=== PATIENT | male | born 1960 | race Caucasian/White ===

== ENCOUNTER → 2019-06-25 13:44 | Outpatient (CLI) | payer OTHER, SELFPAY ==
--- NOTE | 2019-06-25 | DI.RAD.S_ITS ---
PROCEDURE: XR KNEE RT 3V INDICATIONS: right knee pain TECHNIQUE: 3 views of the knee were acquired. COMPARISON: None. FINDINGS: Bones: No fractures or dislocations. No suspicious bony lesions. Soft tissues: No joint effusion. No suspicious soft tissue calcifications. 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 No trauma found. Dictated by: Jeff Martines M.D. on 06/25/2019 at 15:14 Approved by: Jeff Martines M.D. on 06/25/2019 at 15:15
== END ==
PROVIDERS: Family Provider Family Medicine; PCP Family Medicine; Referring Provider Student in an Organized Health Care Education/Training Program; Visit Provider Student in an Organized Health Care Education/Training Program
DX: M25.561 Pain in right knee (principal)
CPT/HCPCS: 73562

== ENCOUNTER → 2019-07-08 06:26 | Outpatient (CLI) | payer OTHER, SELFPAY ==
--- NOTE | 2019-07-08 | DI.MRI.S_ITS ---
PROCEDURE: MR KNEE RT WO CON INDICATIONS: Right knee pain TECHNIQUE: Noncontrast sagittal PD fast spin echo and T2 fast spin echo with fat saturation, sagittal 3-D FLASH with fat saturation; coronal T1 spin echo and PD fast spin echo with fat saturation, and axial PD fast spin echo with fat saturation through the knee. COMPARISON: None. FINDINGS: Image quality: Excellent. Menisci: There is an complex oblique tear involving posterior horn of medial meniscus extending to superior and inferior articulating surface. There is no focal lateral meniscal tear. The meniscal root ligaments appear intact. Cruciate ligaments: The anterior and posterior cruciate ligaments appear intact. Medial structures: There is low-grade proximal MCL sprain. The posterior oblique ligament, semimembranosus tendon insertions, oblique popliteal ligament, and meniscocapsular junction appear intact. Visualized portions of the pes anserinus tendons appear normal. No abnormal bursal fluid. Lateral structures: The lateral collateral ligament, long and short heads of the biceps femoris tendon appear intact. The popliteus tendon appears normal; the popliteofibular ligament appears intact. The posterosuperior and anteroinferior popliteomeniscal fascicles appear intact. The arcuate and fabellofibular ligaments appear intact, on either side of the lateral inferior geniculate artery. Iliotibial band appears normal. Anterior structures: The quadriceps and patellar tendons appear intact. Patellar alignment is normal. No femoral trochlear dysplasia or ventral trochlear prominence. No edema in the infrapatellar fat pad. Bones and cartilage: No bone marrow contusions or fractures. Low-grade chondromalacia involving weight-bearing portion of medial femoral condyle is seen. Articulating cartilages and lateral femoral tibial compartment and patellofemoral compartment are intact. Joint space: There is small amount of joint fluid fluid. No Tyler's cyst. Normal appearing synovial plicae are incidentally noted. IMPRESSION: 1. Complex oblique tear involving posterior horn of medial meniscus extending to both superior and inferior articulating surfaces. No evidence of focal lateral meniscal tear. 2. Chondromalacia involving medial femoral tibial compartment. Small joint effusion. No gross loose body. 3. Cruciate ligaments are intact. Low-grade proximal MCL sprain. Dictated by: Qasim Ku M.D. on 07/08/2019 at 8:41 Approved by: Qasim Ku M.D. on 07/08/2019 at 8:58
== END ==
PROVIDERS: Family Provider Family Medicine; PCP Student in an Organized Health Care Education/Training Program; Referring Provider Student in an Organized Health Care Education/Training Program; Visit Provider Student in an Organized Health Care Education/Training Program
DX: M25.561 Pain in right knee (principal); S83.231A Complex tear of medial meniscus, current injury, right knee, initial encounter; S83.411A Sprain of medial collateral ligament of right knee, initial encounter; M94.261 Chondromalacia, right knee; M25.461 Effusion, right knee
CPT/HCPCS: 73721

== ENCOUNTER 2021-11-05 12:26 | Emergency (ER) | payer OTHER, SELFPAY ==
[2021-11-05 12:55] VITALS: PULSE 61; O2SAT 96
[2021-11-05 12:56] VITALS: BP 146/71; PULSE 63; O2SAT 96
[2021-11-05 13:00] VITALS: BP 146/71; PULSE 59; PULSE 60; RESP 18; TEMP 37; O2SAT 96; BMI 37.8
[2021-11-05 13:01] VITALS: BP 129/75; PULSE 60; O2SAT 96
[2021-11-05 13:30] VITALS: BP 133/77; PULSE 60; O2SAT 97
[2021-11-05 13:45] LABS: Add Manual Diff / Slide Review NO; Basophils Absolute Auto 100 /uL (0-100); Basophils Percent Auto 0.7 % (0-2); Eosinophils Absolute Auto 300 /uL (0-450); Hematocrit 39.6 % (41-53); Hemoglobin 13.7 g/dL (13.5-17.5); Lymphocytes Absolute Auto 2200 /uL (1100-4500); Lymphocytes Percent Auto 18.5 % (25-40); Mean Corpuscular HGB Conc 34.6 % (30-36); Mean Corpuscular Hemoglobin 32.2 PG (26-34); Mean Corpuscular Volume 93.3 fL (80-100); Monocytes Absolute Auto 1400 /uL (0-900); Monocytes Percent Auto 11.9 % (3-14); Neutrophils Absolute Auto 7700 /uL (1500-7000); Neutrophils Percent Auto 65.9 % (50-75); Platelet Count 162 X10^3/uL (150-400); Red Blood Cell Count 4.25 X10^6/uL (4.5-5.9); Red Cell Distribution Width 12.6 % (11.6-14.8); White Blood Cell Count 11.6 X10^3/uL (4.5-11.0)
[2021-11-05 13:52] LABS: Alanine Aminotransferase 45 IU/L (<50); Albumin Globulin Ratio 1.5 (1.0-2.8); Alkaline Phosphatase 67 U/L (38-126); Aspartate Aminotransferase 41 IU/L (17-59); BUN Creatinine Ratio 17.9 (6-22); Blood Urea Nitrogen 17 mg/dL (9-20); Calcium 8.7 mg/dL (8.4-10.2); Carbon Dioxide 29 mmol/L (22-32); Chloride 99 mmol/L (98-107); Estimated Glomerular Filt Rate > 60 mL/min (>60); Globulin 2.7 g/dL (1.7-4.1); Glucose 103 mg/dL (70-100); HEMOLYSIS < 15 (0-50); Lipase 74 U/L (23-300); Potassium 3.7 mmol/L (3.4-5.1); Sodium 137 mmol/L (137-145); Total Protein 6.7 g/dL (6.3-8.2)
[2021-11-05 14:00] VITALS: BP 139/84; PULSE 62; O2SAT 96
--- NOTE | 2021-11-05 14:05 | ED_ITS ---
HPI - Abdominal Pain <ANSHUL Jones - Last Filed: 11/05/21 14:11> General Chief Complaint: Abdominal Pain Stated Complaint: Lower left abd pain Time Seen by Provider: 11/05/21 13:52 Source: patient Mode of arrival: Family Vehicle History of Present Illness HPI narrative: This is a 61-year-old male with history of diverticulitis in the past, presents to the emergency department complaining of left lower quadrant pain which started last night and he feels fairly confident that this is a flare of his diverticulitis. He denies any fever, vomiting, constipation, other abdominal pain, or any other symptoms. He denies any dysuria, urinary retention, back pain, shortness of breath or chest pain. Patient states that he has not had any blood in his urine or his stool, states that his last colonoscopy was 5 years ago and he was told he did not need another one for 10 years. Patient denies any other changes, denies any allergies to penicillin or other antibiotics. Denies being on any anticoagulants, states only on blood pressure medicines. Related Data Home Medications Medication Instructions Recorded Confirmed [EYE DROPS] ##0 01/13/16 05/07/21 aspirin 81 mg tablet,delayed 81 mg PO QDAY ##0 01/13/16 05/07/21 release atorvastatin 10 mg tablet (Lipitor) 10 mg PO HS #30 tabs 01/13/16 05/07/21 telmisartan 40 1 tab PO QDAY #0 tabs 01/13/16 05/07/21 mg-hydrochlorothiazide 12.5 mg tablet (Micardis HCT) venlafaxine 75 mg capsule,extended 75 mg PO QDAY ##0 01/13/16 release 24 hr (Effexor XR) carvedilol PO 05/07/21 05/07/21 hydrochlorothiazide PO 05/07/21 05/07/21 Previous Rx's Medication Instructions Recorded amoxicillin 875 mg-potassium 1 tab PO BID 7 days #14 tabs 11/05/21 clavulanate 125 mg tablet Allergies Allergy/AdvReac Type Severity Reaction Status Date / Time No Known Drug Allergies Allergy Verified 05/07/21 16:35 Review of Systems <ANSHUL Jones - Last Filed: 11/05/21 14:11> Review of Systems Narrative: General: denies fever, chills Head/Neck: denies headache, neck pain Eyes: denies visual changes, eye pain Cardio: denies chest pain, palpitations Respiratory: denies shortness of breath, cough GI: Endorses left lower quadrant abdominal pain, denies any nausea, vomiting, constipation or diarrhea : denies dysuria, hematuria or flank pain MSK: denies new joint pain, muscle weakness or swelling Skin: denies rash, itching or wound Neuro: denies numbness, tingling, dizziness Patient History <ANSHUL Jones - Last Filed: 11/05/21 14:11> Social History Smoking Status: Former smoker Smoking Status: Former smoker tobacco type: cigarettes alcohol intake frequency: 0-2 drinks per day Substance Use Type: does not use Exam <ANSHUL Jones - Last Filed: 11/05/21 14:11> Narrative Exam Narrative: Independently reviewed vitals signs and nursing notes. General: Awake, alert, nontoxic, no cardiorespiratory distress Head/Neck: Atraumatic, neck supple Eyes: EOMI, conjunctiva normal Nose: nares patent, no rhinorrhea Mouth/Throat: moist mucus membranes, posterior pharynx without erythema or lesion Cardio: Regular rate and rhythm, no peripheral edema, warm extremities Respiratory: respirations unlabored without wheezing, stridor, or rales. No retractions, hypoxia or tachypnea GI: Abdomen soft, obese, tender to palpation over left lower quadrant, no guarding or rebound tenderness, no CVA tenderness MSK: Moves all extremities, neurovascularly intact, range of motion without deficit Skin: Normal capillary refill, no rash Neuro: Normal speech and cognition, normal gait Initial Vital Signs Initial Vital Signs: Vital Signs Pulse Rate 61 11/05/21 12:55 Pulse Oximetry 96 11/05/21 12:55 <Marybel Long DO - Last Filed: 11/06/21 07:33> Initial Vital Signs Initial Vital Signs: Vital Signs Pulse Rate 61 11/05/21 12:55 Pulse Oximetry 96 11/05/21 12:55 Course <ANSHUL Jones - Last Filed: 11/05/21 14:11> Orders Ordered: ED Orders 11/05/21 13:23 Complete Blood Count AUTO DIFF Stat Comprehensive Metabolic Panel Stat Lipase Stat Vital Signs Vital signs: Vital Signs - 8 hr 11/05/21 13:00 11/05/21 12:55 11/05/21 12:56 Temperature 98.6 F Pulse Rate 59 L 61 Respiratory Rate 18 Blood Pressure 146/71 H 146/71 H Pulse Oximetry 96 96 Oxygen Delivery Method Room Air 11/05/21 12:56 11/05/21 13:00 11/05/21 13:01 Temperature Pulse Rate 63 60 60 Respiratory Rate Blood Pressure Pulse Oximetry 96 96 96 Oxygen Delivery Method 11/05/21 13:01 Temperature Pulse Rate Respiratory Rate Blood Pressure 129/75 Pulse Oximetry Oxygen Delivery Method <Marybel Long DO - Last Filed: 11/06/21 07:33> Orders Ordered: ED Orders 11/05/21 13:23 Complete Blood Count AUTO DIFF Stat Comprehensive Metabolic Panel Stat Lipase Stat Vital Signs Vital signs: Vital Signs - 8 hr 11/05/21 13:00 11/05/21 12:55 11/05/21 12:56 Temperature 98.6 F Pulse Rate 59 L 61 Respiratory Rate 18 Blood Pressure 146/71 H 146/71 H Pulse Oximetry 96 96 Oxygen Delivery Method Room Air 11/05/21 12:56 11/05/21 13:00 11/05/21 13:01 Temperature Pulse Rate 63 60 60 Respiratory Rate Blood Pressure Pulse Oximetry 96 96 96 Oxygen Delivery Method 11/05/21 13:01 Temperature Pulse Rate Respiratory Rate Blood Pressure 129/75 Pulse Oximetry Oxygen Delivery Method MDM - Abdominal Pain <ANSHUL Jones - Last Filed: 11/05/21 14:11> Lab Data Result diagrams: 11/05/21 13:23 11/05/21 13:23 Labs: Lab Results 11/05/21 11/05/21 Range/Units 13:23 13:23 WBC 11.6 H (4.5-11.0) X10^3/uL RBC 4.25 L (4.5-5.9) X10^6/uL Hgb 13.7 (13.5-17.5) g/dL Hct 39.6 L (41-53) % MCV 93.3 (80-100) fL MCH 32.2 (26-34) PG MCHC 34.6 (30-36) % RDW 12.6 (11.6-14.8) % Plt Count 162 (150-400) X10^3/uL Neut % (Auto) 65.9 (50-75) % Lymph % (Auto) 18.5 L (25-40) % Lynn % (Auto) 11.9 (3-14) % Eos % (Auto) 3.0 (2-4) % Baso % (Auto) 0.7 (0-2) % Neut # (Auto) 7700 H (8291-8289) /uL Lymph # (Auto) 2200 (5447-3907) /uL Lynn # (Auto) 1400 H (0-900) /uL Eos # (Auto) 300 (0-450) /uL Baso # (Auto) 100 (0-100) /uL Sodium 137 (137-145) mmol/L Potassium 3.7 (3.4-5.1) mmol/L Chloride 99 (98-107) mmol/L Carbon Dioxide 29 (22-32) mmol/L BUN 17 (9-20) mg/dL Creatinine 0.95 (0.66-1.25) mg/dL Estimated GFR > 60 (>60) mL/min BUN/Creatinine Ratio 17.9 (6-22) Glucose 103 H (70-100) mg/dL Calcium 8.7 (8.4-10.2) mg/dL Total Bilirubin 1.0 (0.2-1.3) mg/dL AST 41 (17-59) IU/L ALT 45 (<50) IU/L Alkaline Phosphatase 67 (38-126) U/L Total Protein 6.7 (6.3-8.2) g/dL Albumin 4.0 (3.5-5.0) g/dL Globulin 2.7 (1.7-4.1) g/dL Albumin/Globulin Ratio 1.5 (1.0-2.8) Lipase 74 (23-300) U/L [facility] Narrative Medical decision making narrative: This is a pleasant 61-year-old male who presents to the emergency department complaining of left lower quadrant pain which started yesterday and a history of diverticulitis in the past with similar feelings about his pain today. He states that he took some Tylenol but otherwise has not needed any pain med ication. He denies any blood in his urine or stool, states that his last colonoscopy was five years ago when he got a 10 year laughing until his next one is needed. His primary care provider with Sheryl Duenas, she has since retired, he has an upcoming appointment with Dr. Saeed and understands to follow-up with him about this. This is most likely diverticulitis, on exam, he was tender over his left lower quadrant, his lab work showed a mild leukocytosis of 11.6, chemistry without any significant abnormalities. Due to patient's history, his denial of blood in his urine or stool, or any other symptoms, shared decision making with patient who agrees to antibiotic therapy without CT imaging. He states that since he has a history of this and feels quite similar, he will return if he has any worsening. No peritoneal signs on abdominal exam. Patient remains p.o. tolerant. Serial abdominal exam without increase in abdominal pain. Given history and exam, low suspicion for acute abdominal process, such as acute cholecystitis, pancreatitis, perforated viscus, atypical appendicitis, colitis, diverticulitis or torsion. Extensive conversation about ER return precautions and need for close follow-up.Patient is appropriate and amenable to discharge home. Vital signs are stable on repeat examination is unremarkable. Patient has been informed of results. Patient has been given st rict return to ER precautions for any new or worsening symptoms. Patient understands to follow up closely with outpatient providers as instructed. Patient understands plan and agrees to discharge home. All questions and concerns answered at this time. <Marybel Long, - Last Filed: 11/06/21 07:33> Lab Data Labs: Lab Results 11/05/21 11/05/21 Range/Units 13:23 13:23 WBC 11.6 H (4.5-11.0) X10^3/uL RBC 4.25 L (4.5-5.9) X10^6/uL Hgb 13.7 (13.5-17.5) g/dL Hct 39.6 L (41-53) % MCV 93.3 (80-100) fL MCH 32.2 (26-34) PG MCHC 34.6 (30-36) % RDW 12.6 (11.6-14.8) % Plt Count 162 (150-400) X10^3/uL Neut % (Auto) 65.9 (50-75) % Lymph % (Auto) 18.5 L (25-40) % Lynn % (Auto) 11.9 (3-14) % Eos % (Auto) 3.0 (2-4) % Baso % (Auto) 0.7 (0-2) % Neut # (Auto) 7700 H (9585-8614) /uL Lymph # (Auto) 2200 (6620-0813) /uL Lynn # (Auto) 1400 H (0-900) /uL Eos # (Auto) 300 (0-450) /uL Baso # (Auto) 100 (0-100) /uL Sodium 137 (137-145) mmol/L Potassium 3.7 (3.4-5.1) mmol/L Chloride 99 (98-107) mmol/L Carbon Dioxide 29 (22-32) mmol/L BUN 17 (9-20) mg/dL Creatinine 0.95 (0.66-1.25) mg/dL Estimated GFR > 60 (>60) mL/min BUN/Creatinine Ratio 17.9 (6-22) Glucose 103 H (70-100) mg/dL Calcium 8.7 (8.4-10.2) mg/dL Total Bilirubin 1.0 (0.2-1.3) mg/dL AST 41 (17-59) IU/L ALT 45 (<50) IU/L Alkaline Phosphatase 67 (38-126) U/L Total Protein 6.7 (6.3-8.2) g/dL Albumin 4.0 (3.5-5.0) g/dL Globulin 2.7 (1.7-4.1) g/dL Albumin/Globulin Ratio 1.5 (1.0-2.8) Lipase 74 (23-300) U/L Discharge Plan Departure Patient Disposition: Home Clinical Impression: Diverticulitis Instructions: Diverticulitis Activity Restrictions/Additional Instructions: *You have been diagnosed with diverticulitis. Please take these antibiotics twice a day for the next seven days. Please schedule follow-up with Dr. Saeed as needed. Please return if your pain gets worse or if you have any worsening changes. Try and stay hydrated, stick to a hydration diet over the next two day s and this will help calm down your pain as well. Happy 05 of November, I hope that you feel better soon. *What to do: *Please continue to take your regular medications as directed. [ x New medication prescriptions sent to your pharmacy: [ [facility]] [ ] New medication written as a paper prescription [ ] No new medications given *Please follow up with your primary care provider in 2-3 days, call for an appointment. Let them know you were seen in the Emergency Department and that we asked that you be seen for follow-up. We will electronically transmit a record of today's note if your PCP is in our system *If you do not have a primary care provider please contact [phone] to establish care with one of the [facility] primary care providers. *Return to Emergency Department if you should have any new, worsening or concerning symptoms, such as [fever greater than 101F, chills, worsening pain, persistent vomiting or other bothersome symptoms] Prescriptions: New amoxicillin-pot clavulanate 875-125 mg tablet 1 tab PO BID 7 Days Qty: 14 0RF No Action venlafaxine [Effexor XR] 75 MG capsule,extended release 24hr 75 mg PO QDAY Qty: 0 aspirin 81 MG tablet,delayed release (DR/EC) 81 mg PO QDAY Qty: 0 [EYE DROPS] Qty: 0 telmisartan-hydrochlorothiazid [Micardis HCT] 40 MG/12.5 MG tablet 1 tab PO QDAY Qty: 0 atorvastatin [Lipitor] 10 MG tablet 10 mg PO HS Qty: 30 hydrochlorothiazide PO carvedilol PO Referrals: Sheryl Duenas MD [Primary Care Provider] - Niranjan Saeed MD [Physician] - Visit Report Forms: Patient Portal/API <Marybel Long DO - Last Filed: 11/06/21 07:33> [facility] ED Attending Katyature Attestation: I was immediately available in the department for consultation. Documentation has been reviewed. I agree with assessment and plan.
== END 2021-11-05 14:25 | disposition home or self-care (01) ==
PROVIDERS: Emergency Provider Emergency Medicine; PCP Student in an Organized Health Care Education/Training Program
DX: K57.92 Diverticulitis of intestine, part unspecified, without perforation or abscess without bleeding (principal)
CPT/HCPCS: 36415; 80053; 83690; 85025; 99283

== ENCOUNTER 2022-02-10 08:38 | Emergency (ER) | payer OTHER, SELFPAY ==
[2022-02-10 09:10] VITALS: BP 141/84; PULSE 57; RESP 20; TEMP 36.2; O2SAT 95; BMI 33.3
--- NOTE | 2022-02-10 09:33 | DI.RAD.S_ITS ---
PROCEDURE: XR CHEST 2V INDICATIONS: Hemoptysis, covid pos 10 days ago TECHNIQUE: 2 views of the chest were acquired. COMPARISON: None. FINDINGS: Surgical changes and devices: None. Lungs and pleura: An incomplete inspiratory result is noted, causing a crowded appearance to the lung markings. No focal infiltrates are seen. No pneumothorax or significant pleural effusions are seen. Mediastinum: Mediastinal contours are normal. Heart size is normal. Bones and chest wall: No suspicious bony abnormalities. Soft tissues appear unremarkable. IMPRESSION: Low lung volumes, without focal infiltrates or other acute abnormality. Dictated by: Thomas Laureano M.D. on 02/10/2022 at 8:59 Approved by: Thomas Laureano M.D. on 02/10/2022 at 9:00
--- NOTE | 2022-02-10 09:33 | ED.GENADULT ---
HPI - General Adult General Chief complaint: Upper Respiratory Symptoms Stated complaint: per pt Coughing up blood Time Seen by Provider: 02/10/22 09:27 Source: patient Mode of arrival: Ambulatory History of Present Illness HPI narrative: 61-year-old male. Approximately 10 days ago had a ?mild cold like symptoms with a slight fever and some shortness of breath. He was tested positive for COVID. Symptoms lasted approximately 5-6 days. He states he has been feeling well since then. Today woke up and felt like he was wheezing. Was coughing states that he coughed up some blood. He feels better currently. No current shortness of breath. No chest pain. Not on anticoagulation. Related Data Home Medications Medication Instructions Recorded Confirmed [EYE DROPS] ##0 01/13/16 12/06/21 aspirin 81 mg tablet,delayed 81 mg PO QDAY ##0 01/13/16 12/06/21 release venlafaxine 75 mg capsule,extended 75 mg PO QDAY ##0 01/13/16 12/06/21 release 24 hr (Effexor XR) atorvastatin 20 mg tablet 20 mg PO DAILY 12/06/21 12/06/21 carvedilol 50 mg PO DAILY 12/06/21 12/06/21 hydrochlorothiazide 25 mg PO DAILY 12/06/21 12/06/21 loratadine 10 mg tablet (Claritin) 10 mg PO DAILY 12/06/21 12/06/21 telmisartan 80 mg tablet 80 mg PO DAILY 12/06/21 12/06/21 Previous Rx's Medication Instructions Recorded ipratropium bromide 21 mcg (0.03 2 spray intranasal BID #30 mL 12/06/21 %) nasal spray Allergies Allergy/AdvReac Type Severity Reaction Status Date / Time No Known Drug Allergies Allergy Verified 12/06/21 08:50 Review of Systems Constitutional Constitutional: Reports system reviewed and no additional complaints, except as documented ENT Ears, Nose, Mouth, and Throat: Reports system reviewed and no additional complaints, except as documented Cardiovascular Cardiovascular: Reports system reviewed and no additional complaints, except as documented Respiratory Respiratory: Reports system reviewed and no additional complaints, except as documented Hematologic/Lymphatic On Anticoagulants: No Patient History Medical History 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 Obstructive sleep apnea (adult) (pediatric) Social History Smoking Status: Former smoker Smoking Status: Former smoker tobacco type: cigarettes alcohol intake frequency: holidays/special occasions only Substance Use Type: does not use Exam Initial Vital Signs Initial Vital Signs: Vital Signs Temperature 97.2 F L 02/10/22 09:10 Pulse Rate 57 L 02/10/22 09:10 Respiratory Rate 20 02/10/22 09:10 Blood Pressure 141/84 H 02/10/22 09:10 Pulse Oximetry 95 02/10/22 09:10 Oxygen Delivery Method 02/10/22 09:10 Const General: cooperative, healthy appearing and comfortable HENMT Head: normal to inspection and normocephalic Resp Effort & Inspection: normal respiratory effort Auscultation: clear to auscultation bilaterally Cardio Rate: regular rate Rhythm: regular rhythm Neuro General: patient alert, patient awake, patient oriented x3 and moves all extremities Cognition: normal cognition Speech: speech normal Gait: normal gait Extrem General: normal to inspection Course Orders Ordered: ED Orders 02/10/22 09:33 XR chest 2V Stat Vital Signs Vital signs: Vital Signs - 8 hr 02/10/22 09:10 Temperature 97.2 F L Pulse Rate 57 L Respiratory Rate 20 Blood Pressure 141/84 H Pulse Oximetry 95 Oxygen Delivery Method Room Air Medical Decision Making Imaging Data Chest x-ray: Radiologist's Impression: [place] [address] XRay Report Signed Patient: Angel Aaron MR#: [id number] : 1960 Acct:[id number] Age/Sex: 61 / M Date of Service: 02/10/22 Loc: ED Accession Number: [id number] ?? Procedure: XR chest 2V Ordering Provider: Carson Junior D.O. PROCEDURE:? XR CHEST 2V ? INDICATIONS:? Hemoptysis, covid pos 10 days ago ? TECHNIQUE:? 2 views of the chest were acquired.? ? COMPARISON:? None. ? FINDINGS:? ? Surgical changes and devices:? None.? ? Lungs and pleura:? An incomplete inspiratory result is noted, causing a crowded appearance to the lung markings.? No focal infiltrates are seen.? No pneumothorax or significant pleural effusions are seen. ? ? Mediastinum:? Mediastinal contours are normal.? Heart size is normal.? ? Bones and chest wall:? No suspicious bony abnormalities.? Soft tissues appear unremarkable.? IMPRESSION:? Low lung volumes, without focal infiltrates or other acute abnormality. ? ? Dictated by: Thomas Laureano M.D. on 02/10/2022 at 8:59 ? ? Approved by: Thomas Laureano M.D. on 02/10/2022 at 9:00?? MDM Narrative Medical decision making narrative: No respiratory distress. Not hypoxic. Clear lung exam. Not on anticoagulation. Has not cough since being here in the ER. Chest x-ray is unremarkable. No indication for antibiotics. Low suspicion for pulmonary embolism given his presentation. Reassured the patient. Is most likely irritation from his COVID. Discharge home with strict return precautions. He expressed understanding and agreement. Discharge Plan Departure Patient Disposition: Home Clinical Impression: Cough with hemoptysis Instructions: Cough Activity Restrictions/Additional Instructions: Your chest x-ray today shows no signs of an infection that would require any antibiotics. You can try [id number] cough and cold preparations try to help with your cough if needed. Contact your primary doctor for follow-up. Return to the emergency department for any new or worsening symptoms. Prescriptions: No Action venlafaxine [Effexor XR] 75 MG capsule,extended release 24hr 75 mg PO QDAY Qty: 0 aspirin 81 MG tablet,delayed release (DR/EC) 81 mg PO QDAY Qty: 0 [EYE DROPS] Qty: 0 carvedilol 50 mg PO DAILY hydrochlorothiazide 25 mg PO DAILY atorvastatin 20 mg tablet 20 mg PO DAILY telmisartan 80 mg tablet 80 mg PO DAILY loratadine [Claritin] 10 mg tablet 10 mg PO DAILY ipratropium bromide 21 mcg (0.03 %) spray,non-aerosol 2 spray intranasal BID Qty: 30 3RF Rx Instructions: administer into each nostril Referrals: Niranjan Saeed MD [Primary Care Provider] -
--- NOTE | 2022-02-10 10:19 | PC.NURSE ---
exam deferred to Dr. Junior.
== END 2022-02-10 10:58 | disposition home or self-care (01) ==
PROVIDERS: Emergency Provider Emergency Medicine; PCP Family Medicine
DX: R04.2 Hemoptysis (principal); Z86.16 Personal history of COVID-19
CPT/HCPCS: 71046; 99283

== ENCOUNTER → 2023-07-04 09:30 | Outpatient (CLI) | payer OTHER, SELFPAY ==
--- NOTE | 2023-07-04 09:34 | DI.RAD.S_ITS ---
PROCEDURE: XR FINGER RT MIN 2V INDICATIONS: FINGER PAIN TECHNIQUE: AP hand, 2 views of the 2 finger(s) acquired. COMPARISON: None. FINDINGS: Bones: No fractures or dislocations. No suspicious bony lesions. Small ununited ulnar styloid fracture noted Soft tissues: No suspicious soft tissue calcifications. IMPRESSION: No acute bony abnormality. Approved by: Elías Almaguer M.D. on 07/04/2023 at 18:18
--- NOTE | 2023-07-04 09:34 | DI.RAD.S_ITS ---
PROCEDURE: XR HIP W PEL IF DONE LT 2V INDICATIONS: HIP PAIN TECHNIQUE: 2 views of the hip were acquired. COMPARISON: None. FINDINGS: Bones: No fractures or dislocations. No suspicious bony lesions. The visualized pelvic ring appears intact. Soft tissues: No suspicious soft tissue calcifications or masses. Surgical clips noted in the scrotum IMPRESSION: No acute bony abnormality. Approved by: Elías Almaguer M.D. on 07/04/2023 at 18:16
== END ==
LOC: RAD 09:31
PROVIDERS: PCP Family Medicine; Referring Provider Family Medicine; Visit Provider Family Medicine
DX: S69.91XA Unspecified injury of right wrist, hand and finger(s), initial encounter (principal); M25.552 Pain in left hip
CPT/HCPCS: 73140; 73502

== ENCOUNTER → 2023-09-04 16:17 | Outpatient (CLI) | payer OTHER, SELFPAY ==
[2023-09-04 17:57] LABS: Add Manual Diff / Slide Review NO; Basophils Absolute Auto 100 /uL (0-100); Eosinophils Absolute Auto 500 /uL (0-450); Eosinophils Percent Auto 5.1 % (2-4); Hematocrit 40.7 % (41-53); Hemoglobin 14.4 g/dL (13.5-17.5); Lymphocytes Absolute Auto 3200 /uL (1100-4500); Lymphocytes Percent Auto 32.2 % (25-40); Mean Corpuscular HGB Conc 35.3 % (30-36); Mean Corpuscular Hemoglobin 32.7 PG (26-34); Mean Corpuscular Volume 92.7 fL (80-100); Monocytes Absolute Auto 1000 /uL (0-900); Monocytes Percent Auto 10.5 % (3-14); Neutrophils Absolute Auto 5100 /uL (1500-7000); Neutrophils Percent Auto 51.2 % (50-75); Platelet Count 191 X10^3/uL (150-400); Red Blood Cell Count 4.39 X10^6/uL (4.5-5.9); Red Cell Distribution Width 12.5 % (11.6-14.8); White Blood Cell Count 9.9 X10^3/uL (4.5-11.0)
[2023-09-04 18:03] LABS: Albumin 4.5 g/dL (3.5-5.0); BUN Creatinine Ratio 23.8 (6-22); Blood Urea Nitrogen 24 mg/dL (9-20); Calcium 9.4 mg/dL (8.4-10.2); Carbon Dioxide 29 mmol/L (22-32); Chloride 104 mmol/L (98-107); Estimated Glomerular Filt Rate > 60 mL/min (>60); Glucose 80 mg/dL (80-110); HEMOLYSIS < 15 (0-50); Potassium 3.4 mmol/L (3.4-5.1); Sodium 138 mmol/L (137-145)
[2023-09-04 18:05] LABS: Hemoglobin A1C% w Est Avg Glu 6.2 % (4.0-6.0)
[2023-09-04 18:11] LABS: Prealbumin 31.2 mg/dL (17.6-36.0)
[2023-09-04 18:29] LABS: Vitamin D 25 Hydroxy (D3) 37.4 ng/mL (30.0-100.0)
== END ==
PROVIDERS: PCP Family Medicine; Referring Provider Orthopaedic Surgery Adult Reconstructive Orthopaedic Surgery; Visit Provider Orthopaedic Surgery Adult Reconstructive Orthopaedic Surgery
DX: E55.9 Vitamin D deficiency, unspecified (principal); Z01.818 Encounter for other preprocedural examination; Z01.812 Encounter for preprocedural laboratory examination; R73.9 Hyperglycemia, unspecified; R77.0 Abnormality of albumin
CPT/HCPCS: 36415; 80048; 82040; 82306; 83036; 84134; 85025; 93005

== ENCOUNTER 2023-10-24 06:18 | Day surgery (SDC) | payer OTHER, SELFPAY ==
[2023-10-16 13:56] VITALS: BMI 38.0
[2023-10-24] VITALS (13 sets, daily range): BP systolic 97–148; BP diastolic 46–84; PULSE 54–87; RESP 14–19; TEMP 36.1–37; O2SAT 63–98; BMI 38.0
--- NOTE | 2023-10-24 | DI.RAD.S_ITS ---
PROCEDURE: XR HIP W PEL IF DONE LT 2V INDICATIONS: LT HIP ANTERIOR TECHNIQUE: 4 intraoperative fluoroscopy images of the hip acquired. COMPARISON: [facility], CR, XR PELVIS WITH LATERAL HIP LEFT, 10/16/2023, 11:32. [facility], CR, XR HIP W PEL IF DONE LT 2V, 10/24/2023, 11:04. [facility], CR, XR HIP W PEL IF DONE LT 2V, 07/04/2023, 9:40. FINDINGS: Patient is status post left hip arthroplasty, with hardware components in expected positions. The hip joint appears congruent. The visualized bony structures appear intact. IMPRESSION: Expected post-operative appearance of a hip arthroplasty. Dictated by: Roya Saldaña M.D. on 10/24/2023 at 16:43 Approved by: Roya Saldaña M.D. on 10/24/2023 at 16:44
--- NOTE | 2023-10-24 | DI.RAD.S_ITS ---
PROCEDURE: XR HIP W PEL IF DONE LT 2V INDICATIONS: Post op TECHNIQUE: 2 view(s) of the hip acquired. COMPARISON: [facility], CR, XR HIP W PEL IF DONE LT 2V, 10/24/2023, 9:08. FINDINGS: Bones: Patient is status post left hip arthroplasty, with hardware components in expected positions. The hip joint appears congruent. The visualized bony structures appear intact. Soft tissues: Overlying postoperative changes are noted. No suspicious soft tissue densities. Vasectomy clips. IMPRESSION: Expected post-operative appearance of a left hip arthroplasty. Dictated by: Kateryna Vidal MD, PhD on 10/24/2023 at 11:53 Approved by: Kateryna Vidal MD, PhD on 10/24/2023 at 11:54
[2023-10-24] MEDS: GABAPENTIN 600 MG TABLET PO (07:16)
[2023-10-24] MEDS: ACETAMINOPHEN 325 MG TABLET 975 MG PO (07:16)
[2023-10-24] MEDS: LACTATED RINGERS 1,000 ML 42 ML IV ×2 (07:30→09:01)
--- NOTE | 2023-10-24 07:43 | PM.PREOP ---
Pre-operative Note Interval Note History & Physical reviewed/Exam performed by Physician: Yes Changes to H&P: No
[2023-10-24] MEDS: CEFAZOLIN 2 GM/100 ML PREMIX 100 ML IV (08:19)
[2023-10-24] MEDS: TRANEXAMIC ACID 1,000 MG in SODIUM CHLORIDE 0.9% 100 ML 200 MG IV ×2 (08:20→10:16)
--- NOTE | 2023-10-24 08:38 | SUR.OPER ---
Patient supine on padded Medicine Bow table, both arma on padded arm board at <90, both legs secured in padded traction boots and positioned per surgeon, padded post at patient's groin, pressure points checked and padded.
[2023-10-24] MEDS: ROPIVACAINE/EPI/CLONIDINE/KET 50 ML SYRINGE INJ (08:48)
--- NOTE | 2023-10-24 10:38 | P.OP_ITS ---
Operative Date/Time/Diagnoses Date of procedure: 10/24/23 Pre-op diagnosis: Left hip osteoarthritis Post-op diagnosis: same Procedure & Clinicians Procedure: Left total hip arthroplasty with significant additional operative time required due to additional dissection above and beyond what is normally required for this procedure (64964-40) Same procedure as scheduled: Yes Surgeon: Elías Cobb Lamina Searcher: Maggie Adams Anesthesia Type: General, Spinal and Local Operative Notes Estimated Blood Loss (mL): 250 Procedure in detail: Left Uncemented Direct Anterior Depuy Total Hip Arthroplasty: Implants: * Bath Gription size 58 cup? * Actis femoral stem size 6 high offset? * 36 mm +8.5 ceramic femoral head? Procedure Summary: This 63-year-old male patient underwent a total hip arthroplasty today. His case was noteworthy for 3 reasons. First, he is 70 in tall and weighs 271 lb with a very muscular body habitus. This gives him a BMI of 39. Indicative of his overall muscular habitus, he had no overlying pannus over the anterior aspect of his hip. Secondly, his operative side was long 5 mm relative to his nonoperative side preoperatively. This was evident both on his preoperative sta nding AP pelvis radiograph and on gross examination. Thirdly, he had a very varus alignment in his kenaitze femoral anatomy. Because of his overall habitus I performed a TFL release off of the iliac wing during the initial dissection down to the hip capsule and also released the TFL distally to minimize its tension on instruments during the procedure. I also performed an additional release of the conjoined tendon in order to obtain exposure to the femoral canal for broaching. With regards to his varus anatomy, I used a +4 liner and a high offset femoral neck. During initial trialing he had good stability with a +5 head and the operative side remained slightly long relative to the nonoperative side however the neck trial was not fully engaged with the broach. His hip was extremely tight as I was unable to rotate it past 85? and I felt that with some lost length I would still have good hip stability. I therefore initially implanted these components. Surprisingly he had instability with a 45 degree drop test with the +5 head. I therefore removed that +5 head and trialed with a +8.5 head which restored stability. I therefore implanted a final +8.5 head. Final fluoroscopic images indicate that I did slightly lengthened him relative to his preoperative state however I felt this was appropriate given the instability that was evident with a +5 head. Procedure in Detail: This patient was seen preoperatively and evaluated for hip pain which was refractory to numerous nonoperative treatment modalities. Their hip pain correlated with radiographic changes demonstrating significant degeneration in the hip joint. The risks and benefits of continued nonoperative management versus operative management were discussed at length and all of the patient?s questions were answered. Additional educational materials providing further details beyond our discussion in clinic were provided via a publicly available patient education video which included the incidence of medical complications associated with total hip arthroplasty, reasons for revision following total hip arthroplasty, and patient satisfaction rates following total hip arthroplasty. That video can be accessed at [email or web address] . With this understanding of the risks inherent to the procedure, the patient elected to move forward with operative management. Following preoperative optimization, the patient was scheduled for surgery. The patient was met in the preoperative holding area the day of the procedure and all questions were answered. The patient?s nares were swabbed with betadine in order to decolonize them from MRSA. Informed consent was signed and the left limb was marked with indelible ink.? The patient was brought back to the operating room where anesthesia was induced. The patient was transferred to the Cleveland table and all bony prominences were padded. The operative site was prepped and draped in the usual sterile fashion. Prior to incision, tranexamic acid and cefazolin were administered. Operative templating images were displayed demonstrating the anticipated implant sizes and correct operative extremity. A timeout procedure was performed verifying the patient?s identity, medical comorbidities, allergies, relevant medications, anesthesia type and the surgical plan. All present were in agreement. The assistance of a physician carpenter's assistant was required for positioning, room setup, soft tissue retraction and wound closure. Without this assistance, the procedure would have been significantly more challenging and time consuming.?? A direct anterior approach to the hip was utilized. This was performed with a longitudinal incision through a Heuter interval. The incision was planned 2 cm distal and 2 cm lateral to the ASIS extending towards the lateral patella, in line with the muscle body of the TFL. Following incision, the subcutaneous tissue was dissected while taking care to avoid injury to the lateral femoral cutaneous nerve. The fascia overlying the TFL was identified by dissecting off the overlying fat and identifying perforating vessels to the TFL. The TFL fascia was incised and dissected away from the medial border of the TFL. I extended the TFL split up onto the iliac wing to minimize tension on the TFL and also extended my fascial incision well past my skin incision. A cobra retractor was placed over the superior femoral neck between the abductors and the hip capsule and used to reflect the TFL laterally. A Payne self-retainer was then placed in the distal aspect of the wound between the TFL and the rectus femoris. This was tensioned to open up the direct anterior interval and the lateral circumflex vessels were identified and coagulated using electrocautery. The floor of the TFL fascia was incised, exposing the pericapsular fat overlying the hip capsule. A second cobra retractor was placed on the inferior femoral neck. A double-bent soft tissue retractor was placed on the anterior wall of the acetabulum and used to tension the reflected head of rectus femoris, which was then released in order to limit soft tissue tension. A capsulotomy was made in the midline of the anterior hip capsule in line with the femoral neck ending at the vastus tubercle. The double-bent retractor was removed in order to limit the amount of time that a soft tissue retractor remained on the anterior wall and protect the femoral nerve. Tag stitches were placed in the superior and inferior leaflets of the hip capsule. An Trey soft tissue retractor was introduced over the tag stitches and tensioned in the interval between the rectus femoris and the TFL in order to retract and protect those muscles. The cobra retractors were replaced intracapsularly, with one over the superior neck in the pocket created by the base of the greater trochanter and the other on the femoral head. The capsulotomy was extended laterally to the base of the greater trochanter and medially to the lesser trochanter. This required externally rotating the hip. Once the lesser trochanter had been identified, a neck cut was planned according to measurements from preoperative templating. A ruler was cut at the length measured between the superior aspect of the lesser trochanter and the collar of the prosthesis. This line was extended towards the inferior aspect of the lateral cobra retractor to plan a cut which would leave minimal residual femoral neck laterally. The neck was cut at 60 degrees of external rotation along that line. A second cut was performed to remove a large napkin ring and facilitate head extraction. The napkin ring cut and femoral head were removed.?? A broad anterior wall retractor was placed between the labrum and the anterior capsule so that the anterior capsule would prevent capturing and pinching the femoral nerve anteriorly. An additional retractor was placed on the posterior wall. External rotation and traction were applied through the Cleveland table so that the cut surface of the femoral neck would not restrict access to the acetabulum. The labrum was excised sharply and the pulvinar was excised with electrocautery to limit bleeding from branches of the obturator artery. Acetabular reamers were selected based on preoperative templating and measurements of the excised femoral head. These were introduced into the acetabulum. Fluoroscopy was utilized to replicate a standing AP pelvis radiograph by centering over the pelvis, rotating until there was appropriate symmetry between the obturator foramen, and introducing caudal tilt to match the position of the pubic symphysis relative to the sacrococcygeal junction according to the patient?s anatomy. Fluoroscopy was utilized to ensure appropriate reaming depth. Once satisfied with the reaming depth corresponding to the preoperative template and the pinch fit between the columns, an appropriate sized acetabular cup was selected which would provide 1 mm of press-fit. This cup was introduced and manipulated until appropriate abduction and anteversion angles were obtained with careful attention to appropriate abduction and anteversion angles as evaluated by the position of the cup relative to the anterior and posterior stark of the acetabulum and the AP fluoroscopy which recreated the patient?s standing radiograph. The cup was impacted into place. Peripheral osteophytes were removed. The acetabular liner was then placed with care to ensure locking of the locking mechanism.? Attention was then turned to the femur. All retractors were removed, traction was released, a retractor was placed in the interval between the hip capsule and the gluteus minimus, and the hip was externally rotated to 90 degrees. Traction was applied through the Cleveland table to tension the lateral capsule and this was released using electrocautery. Traction was released and a Cleveland hook was placed posteriorly around the proximal femur at the level of the vastus ridge. The table height was lowered in order to restrict the tension on the anterior structures during hip hyperextension to limit the risk of femoral nerve palsy. With traction off and the hip at 90 degrees of external rotation, the hip was hyperextended and adducted while manually elevating the femur away from the acetabulum with the Cleveland hook to ensure it would not be caught behind the greater trochanter. An asymmetric retractor was placed over the calcar and a broad double-pronged retractor was placed over the greater trochanter. The tag stitch capturing the lateral leaflet of the capsule was moved to the medial side, leaving the conjoined and piriformis tendons isolated in the face of the greater trochanter. The hip was externally rotated and elevated. A release of the conjoined tendon was necessary in order to obtain adequate exposure for broaching. The canal was opened with an opening broach and a rasp was used to remove cancellous bone. A rongeur was used to remove the residual lateral bone at the base of the greater trochanter to avoid placing the stem in varus. The femur was then broached to the appropriate sized stem yielding good rotational fit and fill of the canal as well as appropriate version of the stem trial. Neck and head trials were placed, all retractors were removed and the hip was returned to neutral abduction and extension. I then reduced the hip. Initial trialing was performed with a size 6 broach, a high offset neck and a +5 head. I initially manually externally rotated the hip and found no instability. I then locked the hip in 45 degrees of external rotation and dropped it to the floor with traction off which demonstrated no instability. An AP pelvis fluoroscopic image matching the preoperative standing radiograph with both lesser trochanters visible and both hips in 40 degrees of external rotation demonstrated that the operative side remain long relative to the contralateral side but that the neck trial was not fully engaged. AP and lateral hip fluoroscopic images were obtained to evaluate the broach size which demonstrated appropriate canal fill. The hip was dislocated and I returned to the broaching position. Based on my evaluation during initial trialing I planned to place these components given the good instability testing as I felt that losing some length from the neck trial not being fully engaged would not impact his instability. I initially placed a +5 head as well as the definitive stem and unfortunately found at that point in time that there was instability with a 45 degree drop test. There was also instability with a 30 degree drop test. The hip was very tight as it was only able to rotate to 80?. Based on the instability with the drop test however I elected to remove the +5 head and initially trialed with a +8.5 head trial. This resolved the instability with the 45 degree drop test. I therefore returned to the broaching position and placed a ceramic +8.5 head.. The trunnion was cleaned and dried. I placed a ceramic head onto the trunnion and impacted it into place on the Schneider taper.?? All retractors were removed and the hip was reduced. A dilute mixture of betadine and peroxide was used to bathe the soft tissues during final fluoroscopic assessment. Appropriate component positioning was confirmed on an AP pelvis radiograph with the operative and nonoperative legs in 40 degrees of external rotation, evaluating leg length and offset. This indicated that had likely slightly lengthened him relative to his preoperative state. I felt this was appropriate given the instability that I had with a +5 head. Appropriate stem fill was evaluated on AP and lateral hip radiographs. No fractures were identified on these radiographs. There was no hip instability with maximum external rotation which would now only allow 70? as well as a 45 degree drop test. The hip was copiously irrigated with pulse lavage. The capsule was closed with absorbable interrupted suture. The TFL fascia was closed with barbed suture while carefully protecting the lateral femoral cutaneous nerve from entrapment. A mixture of Ropivacaine, Epinephrine, Clonidine and Toradol was infiltrated throughout the soft tissues. The skin was closed with 2-0 and 3-0 sutures. Surgical glue was applied and a soft dressing was placed.??The sponge, instrument and needle counts were reported as being correct at the end of the case.??No obvious complications occurred. The patient was transferred from the [facility] back to a stretcher. The patient emerged from anesthesia without difficulty and was taken to the PACU in a stable condition.? Plan for aftercare: * Anterior hip precautions * Weightbearing as tolerated * Aspirin 81 twice per day for DVT prophylaxis * Anticipate discharge home today * Change into normal clothes upon arrival on the hospital floor * Mobilize in the halls as much as is logistically possible. If physical therapy is unavailable for mobilization, then patient should mobilize with nursing staff * Multimodal pain regimen with no IV opioids ordered * Apply ice machine to operative hip. Ensure that sufficient ice is in the chamber for the pad to remain cold * Follow up at [facility] in 2 weeks * Detailed postoperative instructions available at [email or web address]
[2023-10-24] MEDS: IBUPROFEN 600 MG TABLET PO ×2 (12:36→17:15)
[2023-10-24] MEDS: ACETAMINOPHEN 325 MG TABLET 650 MG PO ×3 (12:36→23:37)
[2023-10-24] MEDS: LACTATED RINGERS 1,000 ML 100 ML IV (12:37)
[2023-10-24] MEDS: OXYCODONE IR 5 MG TABLET PO ×3 (12:40→22:13)
[2023-10-24] MEDS: CEFAZOLIN VIAL 3 GM in SODIUM CHLORIDE 0.9% 100 ML IV ×2 (15:35→23:36)
[2023-10-24] MEDS: TRAMADOL 50 MG TABLET PO ×2 (16:07→20:43)
--- NOTE | 2023-10-24 16:15 | PT.IIE ---
Current Diagnoses Unilateral primary osteoarthritis, left hip (10/24/23) Surgery Performed Operation Date: 10/24/23 07:45 Actual Procedures p Total Hip Arthroplasty/Anterior Approach(Left) - Elías Cobb MD Surgical History (Last Reviewed 10/24/23 @ 06:46 by Mari Gracia, RN) H/O vasectomy Hx of nasal septoplasty Medical History (Last Reviewed 10/24/23 @ 06:46 by Mari Gracia, RN) 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 Depression Elevated cholesterol Glaucoma History of COVID-19 (2020) HTN (hypertension) Obstructive sleep apnea (adult) (pediatric) Osteoarthritis Seasonal allergies Physical Therapy Inpatient Evaluation/Re-Eval M1 PT/OT-IP Prior Functional Status Start: 10/24/23 16:03 Freq: NEEDED Status: Active Protocol: Document 10/24/23 16:04 KJ (Rec: 10/24/23 16:15 KJ [id number]) Medical Review Prior Functional Status Medical History Reviewed Yes Mobility and Gait Indep ambulation without AD. Activities of Daily Living and IADL's Indep ADLs Social History Household Members spouse Living Arrangements House Number of Stairs To Enter/Railing? can enter through garage without stairs. jessica be staying on the first floor of the house Home Equipment Front Wheel Walker Additional Social History Comment Lives with , who is a personnel research psychologist. Daughter lives nearby. M2 PT-IP Current Condition Start: 10/24/23 16:03 Freq: NEEDED Status: Active Protocol: Document 10/24/23 16:04 KJ (Rec: 10/24/23 16:15 KJ [id number]) Physical Therapy Current Condition Current Condition Evaluation Date 10/24/23 Treatment Diagnosis impaired mobility Onset Date 10/24/23 M3 PT-IP Subjective Start: 10/24/23 16:03 Freq: NEEDED Status: Active Protocol: Document 10/24/23 16:04 KJ (Rec: 10/24/23 16:15 KJ [id number]) Subjective Physical Therapy Visit Type Type Initial Evaluation Visit Start Time 14:28 Visit Stop Time 15:11 Physical Therapy Visit Comments Patient Goals To return home, heal properly. Therapy Pain Assessment Pain When Pain Assessed During Mobility Pain Present Pain Present Pain Reported Location left hip Description Aching Pain Management Techniques Apply Cold,Re-positioning M4 PT-IP Mobility and Gait Start: 10/24/23 16:03 Freq: NEEDED Status: Active Protocol: Document 10/24/23 16:04 KJ (Rec: 10/24/23 16:15 KJ [id number]) PT-Bed Mobility Assessment Supine to Sit Supine to Sit Minimal Assistance Sit to Supine Sit to Supine Minimal Assistance Scooting Scooting to Edge of Bed Minimal Assistance Scooting Up and Down in Bed Minimal Assistance PT-Transfer Assessment Sit to and From Stand Sit to and from Stand Minimal Assistance Equipment Transfer Assistive Device 4 Wheeled Walker Orthotic/Prosthetic Devices or Brace: No Transfers Transfer Destination Chair Transfer Technique Stand Step Pivot Transfer Ability Level of Assist Contact Guard Assistance Comments Mobility Comments Pt with mild dizziness during mobility. Frequent rest breaks taken. Monitored BP which dropped to 91/53 while sitting in recliner chair. Gait Assessment Gait Gait Assistance Required: Contact Guard Assist Distance (Feet) 3 Assistive Devices Assistive Device Gait Belt,Front Wheeled Walker Gait Deviations General Gait Pattern Decreased Stride Length Factors Limiting Gait Function Factors Limiting Gait Function Pain Comments Gait Comments Pt with c/o mild pain during ambulation, continued to be light headed PT-Balance Assessment Sitting Balance and Reactions Static Sitting Balance Ability Normal Dynamic Sitting Balance Ability Good Standing Balance and Reactions Static Standing Balance Ability Good Dynamic Standing Balance Ability Good M5 PT-IP Objective Assessments Start: 10/24/23 16:03 Freq: NEEDED Status: Active Protocol: Document 10/24/23 16:04 KJ (Rec: 10/24/23 16:15 KJ [id number]) Orientation Orientation/Cognition Level of Alertness Alert Orientation Name,Age,Birthday,Month,Date, Year,Day of Week,Place, Situation Language Function Ability No Deficits Noted Safety Awareness Understands Safety Issues Memory Description No Deficits Noted Gross Range of Motion Upper Extremity ROM Assessment Within Functional Limits Lower Extremity ROM Assessment Within Functional Limits Strength Upper Extremity Strength Assessment Within Functional Limits Lower Extremity Strength Assessment Left Impaired Hip due to surgery Knee WFL Ankle WFL M6 PT-IP Treatment Start: 10/24/23 16:03 Freq: NEEDED Status: Active Protocol: Document 10/24/23 16:04 KJ (Rec: 10/24/23 16:15 KJ [id number]) Physical Therapy Treatment Exercises Exercises Ankle Pumps,Gluteal Sets,Quad Sets Education Education Provided Precautions,Weight Bearing Status,Post-Op Packet,Safety Other Treatments Other Treatment Performed Instructed verbally on stairs M7 PT-IP Assessment and Plan Start: 10/24/23 16:03 Freq: NEEDED Status: Active Protocol: Document 10/24/23 16:04 KJ (Rec: 10/24/23 16:15 KJ [id number]) PT Summary Assessment and Plan Potential Rehabilitation Potential Excellent Status of Condition at Evaluation Evolving Summary Impairments Pain,ROM,Gait,Activity Tolerance Progress Towards Goals Slow Progress due to Medical Issues Assessment Summary Unable to ambulate due to hypotension Goals Bed Mobility Goal Independent Transfer Goal Independent Gait Goal Independent Gait Distance 150' Other Goals Ascend/descend 3 steps with rails Frequency of Treatment Frequency Of Treatment Once a Day Treatment Plan Physical Therapy Treatment Plan Bed Mobility Training,Transfer Training,Gait Training, Therapeutic Exercise Other Recommendations and Next Treatment Progress to ambulation when Focus vitals are steady Weight Bearing Status Weight Bearing Status Weight Bear as Tolerated Recommendations To Nursing Amount of Assist Needed 1 Person Assist Discharge Recommendations PT Discharge Recommendations Home with Assistance, Outpatient PT Equipment Needed for Home Before has a walker Discharge Transportation Needs at Discharge Private Vehicle
--- NOTE | 2023-10-24 16:54 | P.PN_ITS ---
Subjective Subjective Interval history: Patient seen postoperatively. He is resting comfortably at this time. Does report that he has had increased pain since surgery. Ice machine has not been functioning appropriately so I have transitioned him to a bag of ice on his anterior thigh. Sensation is intact to light touch in the sciatic and femoral nerve distributions. Motor function also intact in those distributions. Dressing is clean dry and intact. He stood up with physical therapy but became symptomatically hypotensive to 98/56. We have therefore delayed his discharge for today. We will plan for him to remain here overnight and administer 500 of albumin in attempt to improve his blood pressure. If he fails to improve symptomatically with the large bag of ice on his thigh we can administer an extra 1 time dose of 5 mg oxycodone in addition to his scheduled as needed doses. Exam Vital Signs (past 8 hours): - 10/24/23 11:03 10/24/23 11:06 10/24/23 11:08 Temperature 97.2 F L Pulse Rate 61 61 60 Respiratory Rate 19 18 18 Blood Pressure 97/56 L 98/56 L 105/61 Pulse Oximetry 95 95 94 Oxygen Delivery Method Nasal Cannula Nasal Cannula Nasal Cannula Oxygen Flow Rate 3 2 10/24/23 11:13 10/24/23 11:20 10/24/23 11:35 Temperature Pulse Rate 60 60 57 L Respiratory Rate 16 18 18 Blood Pressure 107/58 L 110/63 118/58 L Pulse Oximetry 93 95 96 Oxygen Delivery Method Nasal Cannula Nasal Cannula Nasal Cannula Oxygen Flow Rate 3 2 2 10/24/23 11:45 10/24/23 12:00 10/24/23 12:30 Temperature 97.0 F L Pulse Rate 58 L 54 L 70 Respiratory Rate 14 16 16 Blood Pressure 118/65 102/49 L 107/46 L Pulse Oximetry 94 95 97 Oxygen Delivery Method Nasal Cannula Oxygen Flow Rate 2 10/24/23 13:00 10/24/23 14:00 10/24/23 14:13 Temperature Pulse Rate 84 87 Respiratory Rate 16 16 Blood Pressure 108/60 97/70 Pulse Oximetry 98 96 Oxygen Delivery Method Room Air Oxygen Flow Rate Oxygen Delivery Method Room Air Oxygen Flow Rate 2 [facility] Medical History History of COVID-19 (2020) Depression Osteoarthritis Elevated cholesterol HTN (hypertension) Seasonal allergies Glaucoma 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 Obstructive sleep apnea (adult) (pediatric) Surgical History H/O vasectomy Hx of nasal septoplasty Social History household members: spouse Smoking Status: Former smoker alcohol intake: current
[2023-10-24] MEDS: ALBUMIN HUMAN 12.5 GM/250 ML VIAL IV (17:14)
[2023-10-24] MEDS: DOCUSATE 100 MG CAPSULE PO (20:43)
[2023-10-24] MEDS: ASPIRIN EC 81 MG TABLET PO (20:43)
[2023-10-24] MEDS: OXYCODONE IR 5 MG TABLET 10 MG PO (23:31)
--- NOTE | 2023-10-24 23:50 | PC.NURSE ---
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 MD ordered one time dose of 10mg oxycodone. Patient has been medicated per JUL for pain management and applying ice packs for 20 minutes on /off /on cycle.
[2023-10-25] MEDS: OXYCODONE IR 5 MG TABLET PO ×4 (01:21→13:06)
[2023-10-25] MEDS: LACTATED RINGERS 1,000 ML 100 ML IV (05:26)
[2023-10-25] MEDS: ACETAMINOPHEN 325 MG TABLET 650 MG PO ×2 (06:11→13:07)
[2023-10-25] MEDS: IBUPROFEN 600 MG TABLET PO (06:11)
[2023-10-25 06:34] LABS: Hematocrit 30.3 % (41-53); Hemoglobin 10.7 g/dL (13.5-17.5)
[2023-10-25 06:41] VITALS: BP 115/64; PULSE 68; RESP 16; TEMP 36.5; O2SAT 93
--- NOTE | 2023-10-25 07:51 | PM.DS.1 ---
History of Present Illness History of Present Illness Date Patient Seen: 10/25/23 Time Patient Seen: 07:52 Chief complaint: Left hip pain Narrative: Patient's pain was moderate to severe overnight. Patient states his pain is more [id number] this morning. Patient denies any fever or chills. No nausea or vomiting. Patient has his and daughter home to assist him. Discharge Providers Provider Discharge Date: 10/25/23 Primary care physician: Niranjan Saeed MD Consults: 10/24/23 12:02 Consult to Discharge Planning Routine Comment: Consult to Physical Therapy Evaluate & Treat Comment: Physician Instructions: post op MARY GRACE protocol Discharge provider: Kumar Perales PA-C Summary Hospital Course Discharge Diagnosis: Left hip osteoarthritis Hospital Course: Left total hip arthroplasty with significant additional operative time required due to additional dissection above and beyond what is normally required for this procedure ([id number]) Same procedure as scheduled: Yes Surgeon: Elías Cobb Assistant To The Ceo: Maggie Adams Anesthesia Type: General, Spinal and Local Operative Notes Estimated Blood Loss (mL): 250 Procedure in detail: Left Uncemented Direct Anterior Depuy Total Hip Arthroplasty: Implants: [place] Gription size 58 cup? Actis femoral stem size 6 high offset? 36 mm +8.5 ceramic femoral head? Patient admitted to the hospital for left total hip arthroplasty. Patient consented to the same. Patient underwent left total hip arthroplasty October 24, 2023. Patient back in his room recovering well as in stable condition. Patient has yet to work with physical therapy. Patient will mobilize with physical therapy this morning. Anterior hip precautions. Weightbearing as tolerated. Aspirin 81 mg b.i.d. for DVT prophylaxis. Discharge today after physical therapy if safe for home environment. Exam Vital Signs (past 8 hours): - 10/25/23 06:41 Temperature 97.7 F Pulse Rate 68 Respiratory Rate 16 Blood Pressure 115/64 Pulse Oximetry 93 Oxygen Delivery Method Room Air Oxygen Flow Rate 0 Objective Labs 10/25/23 06:15 Labs: Laboratory Results - last 24 hr 10/25/23 06:15 Hgb 10.7 L Hct 30.3 L [facility] Medical History History of COVID-19 (2020) Depression Osteoarthritis Elevated cholesterol HTN (hypertension) Seasonal allergies Glaucoma 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 Obstructive sleep apnea (adult) (pediatric) Surgical History H/O vasectomy Hx of nasal septoplasty Social History household members: spouse Smoking Status: Former smoker alcohol intake: current Discharge Plan Discharge Plan Patient Disposition: Home Discharge orders & Medications Discharge Orders: Discharge (Order); Ordered 10/24/23 Ordered By: Maggie Adams Prescriptions: New oxycodone 5 mg Tablet 5 mg PO Q4-6H PRN (Reason: Mild or moderate pain) Qty: 30 0RF meloxicam 15 mg tablet 15 mg PO DAILY Qty: 30 0RF docusate sodium 100 mg capsule 100 mg PO BID PRN (Reason: constipation) Qty: 30 0RF ondansetron 4 mg tablet,disintegrating 4 mg PO Q8H PRN (Reason: nausea and vomiting) Qty: 10 0RF pantoprazole 40 mg tablet,delayed release (DR/EC) 40 mg PO DAILY Qty: 60 0RF Continued venlafaxine [Effexor XR] 75 MG capsule,extended release 24hr 150 mg PO QDAY Qty: 0 cetirizine [Zyrtec] 10 mg Tablet 10 mg PO DAILY travoprost [Travatan Z] 0.004 % Drops 1 drp OPHTHALMIC (EYE) DAILY hydrochlorothiazide 50 mg Tablet 50 mg PO DAILY atorvastatin 20 mg tablet 20 mg PO DAILY telmisartan 80 mg tablet 80 mg PO DAILY Changed aspirin 81 MG tablet,delayed release (DR/EC) 81 mg PO BID Qty: 90 0RF acetaminophen 500 mg Tablet 1,000 mg PO Q8HR Qty: 90 0RF Discontinued ibuprofen [Motrin IB] 200 mg Tablet 400 - 800 mg PO DAILY PRN (Reason: Pain) Follow up/Referrals: Elías Cobb MD [Physician] - (Follow up as scheduled at [facility] in 2 weeks.) Niranjan Saeed MD [Primary Care Provider] - Diet/Activity/Treatments Diet: Diet as Tolerated Activity: Weightbearing as tolerated, maintain anterior hip precautions. Cold/Heat Therapy: Ice to the hip for additional pain control. Skin/Wound/Dressing Care Report to your healthcare provider any signs of infection, such as:: chills, fever, night sweats, unusual drainage and unusual redness Dressing: Keep dressing intact, clean and dry until 2 week post-op appointment. No soaking the incision site in pools or tubs. No topical ointments or creams to the incision site. Visit Report/Discharge Packet Instructions: DI for Hip Replacement, DI for Prescription Opioid Use Stand Alone Forms: Patient Portal/API, Surgery Discharge Discharge Data Primary Care Provider: Niranjan Saeed Attending Provider: Elías Cobb
[2023-10-25] MEDS: DOCUSATE 100 MG CAPSULE PO (08:47)
[2023-10-25] MEDS: LORATADINE 10 MG TABLET PO (08:47)
[2023-10-25] MEDS: ASPIRIN EC 81 MG TABLET PO (08:47)
[2023-10-25] MEDS: ATORVASTATIN 20 MG TABLET PO (08:48)
[2023-10-25] MEDS: VENLAFAXINE ER 75 MG CAP 150 MG PO (08:48)
[2023-10-25 10:22] VITALS: BP 104/59; PULSE 67; RESP 16; TEMP 36.7; O2SAT 95
--- NOTE | 2023-10-25 10:42 | PT.IPTN ---
Current Diagnoses Unilateral primary osteoarthritis, left hip (10/24/23) Surgery Performed Operation Date: 10/24/23 07:45 Actual Procedures p Total Hip Arthroplasty/Anterior Approach(Left) - Elías Cobb MD Physical Therapy Treatment Note M2 PT-IP Current Condition Start: 10/24/23 16:03 Freq: NEEDED Status: Active Protocol: Document 10/24/23 16:04 KJ (Rec: 10/24/23 16:15 KJ [id number]) Physical Therapy Current Condition Current Condition Evaluation Date 10/24/23 Treatment Diagnosis impaired mobility Onset Date 10/24/23 M3 PT-IP Subjective Start: 10/24/23 16:03 Freq: NEEDED Status: Active Protocol: Document 10/25/23 11:05 TS (Rec: 10/25/23 11:16 TS [id number]) Subjective Physical Therapy Visit Type Type Treatment Note Visit Start Time 10:42 Visit Stop Time 11:05 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 Therapy Pain Assessment Pain When Pain Assessed During Mobility Pain Present Pain Present Pain Reported M4 PT-IP Mobility and Gait Start: 10/24/23 16:03 Freq: NEEDED Status: Active Protocol: Document 10/25/23 11:05 TS (Rec: 10/25/23 11:16 TS [id number]) PT-Bed Mobility Assessment Supine to Sit Supine to Sit Standby Assistance Sit to Supine Sit to Supine Standby Assistance Scooting Scooting to Edge of Bed Standby Assistance Scooting Up and Down in Bed Standby Assistance PT-Transfer Assessment Sit to and From Stand Sit to and from Stand Contact Guard Assistance Equipment Transfer Assistive Device Gait Belt,Front Wheeled Walker Orthotic/Prosthetic Devices or Brace: No Comments Mobility Comments BP in supine 102/56. Supine to sit SBA with HOB slightly elevated, pt reports dizziness initially in sitting. BP in sitting 122/65, pt denies dizziness. STS with BUE support on FWW SBA. BP in standing 124/58, pt denies dizziness. He ambulated ~175' SBA with FWW, continues to deny dizziness. Sit to supine SBA with use of handrails. Pt was left in bed, all needs met . Gait Assessment Gait Gait Assistance Required: Contact Guard Assist Distance (Feet) 175 Assistive Devices Assistive Device Gait Belt,Front Wheeled Walker Orthotic/Prosthetic Devices or Brace: No Gait Deviations General Gait Pattern Decreased Stride Length Factors Limiting Gait Function Factors Limiting Gait Function Pain PT-Balance Assessment Sitting Balance and Reactions Static Sitting Balance Ability Normal Dynamic Sitting Balance Ability Good Standing Balance and Reactions Static Standing Balance Ability Good Dynamic Standing Balance Ability Good Device Used FWW M5 PT-IP Objective Assessments Start: 10/24/23 16:03 Freq: NEEDED Status: Active Protocol: Document 10/24/23 16:04 KJ (Rec: 10/24/23 16:15 KJ [id number]) Orientation Orientation/Cognition Level of Alertness Alert Orientation Name,Age,Birthday,Month,Date, Year,Day of Week,Place, Situation Language Function Ability No Deficits Noted Safety Awareness Understands Safety Issues Memory Description No Deficits Noted Gross Range of Motion Upper Extremity ROM Assessment Within Functional Limits Lower Extremity ROM Assessment Within Functional Limits Strength Upper Extremity Strength Assessment Within Functional Limits Lower Extremity Strength Assessment Left Impaired Hip due to surgery Knee WFL Ankle WFL M6 PT-IP Treatment Start: 10/24/23 16:03 Freq: NEEDED Status: Active Protocol: Document 10/25/23 11:05 TS (Rec: 10/25/23 11:16 TS [id number]) Physical Therapy Treatment Education Education Provided Precautions,Weight Bearing Status,Post-Op Packet,Safety M7 PT-IP Assessment and Plan Start: 10/24/23 16:03 Freq: NEEDED Status: Active Protocol: Document 10/25/23 11:05 TS (Rec: 10/25/23 11:16 TS [id number]) PT Summary Assessment and Plan Potential Rehabilitation Potential Excellent Summary Impairments Pain,ROM,Gait,Activity Tolerance Progress Towards Goals Progressing Toward Goals Assessment Summary Pt is making good progress with his mobility. He is SBA for all bed mobility. He progressed his gait to ~175' SBA with FWW. He denies dizziness with ambulation, see vitals in mobility comments. PT is recommending home with assist. Goals Bed Mobility Goal Independent Transfer Goal Independent Gait Goal Independent Gait Distance 150' Other Goals Ascend/descend 3 steps with rails Frequency of Treatment Frequency Of Treatment Once a Day Treatment Plan Physical Therapy Treatment Plan Bed Mobility Training,Transfer Training,Gait Training, Therapeutic Exercise Weight Bearing Status Weight Bearing Status Weight Bear as Tolerated Recommendations To Nursing Amount of Assist Needed Standby Assistance Discharge Recommendations PT Discharge Recommendations Home with Assistance, Outpatient PT Equipment Needed for Home Before has a walker Discharge Transportation Needs at Discharge Private Vehicle
== END 2023-10-25 14:00 | disposition home or self-care (01) ==
LOC: OR 06:22 → AC 11:58
PROVIDERS: PCP Family Medicine; Referring Provider Family Medicine; Visit Provider Orthopaedic Surgery Adult Reconstructive Orthopaedic Surgery
PROC: (CPT 27130; principal; 2023-10-24 07:45)
DX: M16.12 Unilateral primary osteoarthritis, left hip (principal)
CPT/HCPCS: 27130; 36415; 73502; 76000; 85014; 85018; 97110; 97116; 97161; 97530; C1776; J0690; J1100; J2250; J2704; J3010; P9045